=== PATIENT | male | born 1990 | race Caucasian/White ===

== ENCOUNTER 2017-04-17 19:47 | Emergency (ER) | payer SELFPAY ==
[~2017-04-17 19:47] MED LIST: ATARAX PO; ELIMITE60 GM TOP; LORTAB 5/500 TA1 TA2 PO; NAPROXEN PO; PHENERGAN PO; PRILOSEC PO; ULTRAM PO; ZITHROMAX PO; ZOFRAN PO
== END 2017-04-17 20:01 | disposition left against medical advice (07) ==
LOC: CED 19:47
DX: Z53.21 Procedure and treatment not carried out due to patient leaving prior to being seen by health care provider (principal)